=== PATIENT | female | born 1970 | race Caucasian/White ===

== ENCOUNTER 2022-11-03 17:28 | Emergency (ER) | payer OTHER ==
[~2022-11-03 17:28] MED LIST: Iopamidol-370 76% 500 ML MDV (1 ML CHARGE) ONE
[2022-11-03] MEDS ORDERED: Aspirin Chewable 81 MG TAB ONE (18:04)
[2022-11-03 18:15] LABS: #Basophils 0.1 thou/uL (0.0-0.2); #Eosinphils 0.3 thou/uL (0.0-0.7); #Monocytes 0.8 thou/uL (0.11-0.59); #Neutrophils 5.4 thou/uL (1.40-6.50); %Basophils 0.6 % (0.0-1.0); %Eosinophils 3.6 % (0.0-10.0); %Lymphocytes 26.2 % (21.0-51.0); %Monocytes 8.9 % (0.0-10.0); %Neutrophils 60.5 % (42.0-75.0); Hemoglobin 15.5 g/dL (12.0-16.0); Mean Corpuscular HGB CONC 34.3 g/dL (32.0-36.0); Mean Corpuscular Volume 87.6 fl (78.0-98.0); Platelet Count 281 10x3/uL (130-400); Red Blood Cell (RBC) Count 5.16 mill/uL (4.20-5.40); White Blood Cell (WBC) Count 8.9 10x3/uL (4.8-10.8)
[2022-11-03 18:40] LABS: ALT (SGPT) 20 U/L (8-55); AST (SGOT) 15 U/L (5-34); Albumin 4.1 g/dL (3.5-5.0); Alkaline Phosphatase 68 U/L (40-110); Anion Gap 15 mmol/L (10-20); BUN (Urea Nitrogen) 9 mg/dL (9.8-20.1); Bilirubin, Total 0.3 mg/dL (0.2-1.2); CK (CPK) 66 U/L (29-168); Calc. Creatinine Clearance 0 mL/min (70-130); Calcium 9.8 mg/dL (7.8-10.44); Carbon Dioxide 24 mmol/L (22-29); Chloride 103 mmol/L (98-107); Estimated GFR 84; Globulin 3.1 g/dL (2.4-3.5); Glucose 100 mg/dL (70-105); Lipase 26 U/L (8-78); Potassium 3.9 mmol/L (3.5-5.1); Protein, Total 7.2 g/dL (6.0-8.3); Sodium 138 mmol/L (136-145)
[2022-11-03 18:43] LABS: Bacteria/HPF None Seen HPF (None Seen); Bilirubin Negative (Negative); Blood, Urine Negative (Negative); CAUTI Indications for Culture Pelvic or flank pain; Clarity Clear (Clear); Glucose, Urine (Dipstick) Normal (Negative); Ketone, Urine Negative (Negative); Leukocyte 75 Leu/uL (Negative); Nitrite Negative (Negative); Protein, Urine (Dipstick) 30 mg/dL (Neg-Trace); RBC/HPF 0-3 HPF (0-3); Specific Gravity, Urine 1.024 (1.002-1.036); Squamous Epithelial 0-3 HPF (0-3); Urobilinogen Normal mg/dL (Less than 2); WBC/HPF 0-3 HPF (0-3)
[2022-11-03 18:45] LABS: Urine Culture Reflex No No
== END 2022-11-03 21:19 | disposition home or self-care (01) ==
LOC: ERS 17:28
DX: R11.2 Nausea with vomiting, unspecified (principal); K59.00 Constipation, unspecified; N39.0 Urinary tract infection, site not specified; L74.0 Miliaria rubra; F17.210 Nicotine dependence, cigarettes, uncomplicated
CPT/HCPCS: 36415; 71045; 74177; 80053; 81001; 82550; 83690; 83880; 84484; 85025; 93005; 96360; Q9967

== ENCOUNTER 2022-11-18 15:35 | Inpatient (IN) | payer OTHER ==
[2022-11-18 16:22] LABS: #Monocytes 1.7 thou/uL (0.11-0.59); #Neutrophils 13.5 thou/uL (1.40-6.50); %Basophils 0.2 % (0.0-1.0); %Eosinophils 0.1 % (0.0-10.0); %Lymphocytes 6.9 % (21.0-51.0); %Monocytes 10.2 % (0.0-10.0); %Neutrophils 81.8 % (42.0-75.0); Hemoglobin 12.5 g/dL (12.0-16.0); Mean Corpuscular HGB CONC 34.3 g/dL (32.0-36.0); Mean Corpuscular Hemoglobin 30.5 pg (27.0-31.0); Mean Corpuscular Volume 88.8 fl (78.0-98.0); Mean Platelet Volume 9.7 fL (7.4-10.4); Platelet Count 260 10x3/uL (130-400); White Blood Cell (WBC) Count 16.5 10x3/uL (4.8-10.8)
[2022-11-18] MEDS ORDERED: Ketorolac Tromethamine 30 MG/ML VIAL ONE (16:35)
[2022-11-18] MEDS ORDERED: Cefepime 2 GM VIAL ONE (16:46)
[2022-11-18 16:49] LABS: ALT (SGPT) 13 U/L (8-55); AST (SGOT) 14 U/L (5-34); Albumin 3.4 g/dL (3.5-5.0); Alkaline Phosphatase 74 U/L (40-110); Anion Gap 13 mmol/L (10-20); BUN (Urea Nitrogen) 5 mg/dL (9.8-20.1); Bilirubin, Total 0.5 mg/dL (0.2-1.2); Calc. Creatinine Clearance 0 mL/min (70-130); Calcium 8.3 mg/dL (7.8-10.44); Carbon Dioxide 23 mmol/L (22-29); Chloride 96 mmol/L (98-107); Estimated GFR 91; Globulin 2.9 g/dL (2.4-3.5); Glucose 106 mg/dL (70-105); Potassium 3.5 mmol/L (3.5-5.1); Protein, Total 6.3 g/dL (6.0-8.3); Sodium 128 mmol/L (136-145)
[2022-11-18 17:25] LABS: Bilirubin Negative (Negative); Blood, Urine Trace (Negative); CAUTI Indications for Culture Alt mental st,lethar; Clarity Clear (Clear); Glucose, Urine (Dipstick) Normal (Negative); Ketone, Urine Negative (Negative); Leukocyte 75 Leu/uL (Negative); Nitrite 1+ (Negative); Protein, Urine (Dipstick) Negative (Neg-Trace); Specific Gravity, Urine 1.003 (1.002-1.036); Urobilinogen Normal mg/dL (Less than 2); pH, Urine 6.5 (5.0-9.0)
[2022-11-18 17:26] LABS: RBC/HPF 0-3 HPF (0-3)
[2022-11-18 17:27] LABS: Bacteria/HPF Rare-Few HPF (None Seen); Squamous Epithelial 0-3 HPF (0-3); WBC/HPF 0-3 HPF (0-3)
[2022-11-18 17:28] LABS: Urine Culture Reflex No No
[2022-11-18] MEDS ORDERED: Vancomycin 1 GM/200 ML (FROZEN) BAG ONE (17:56)
[2022-11-18] MEDS ORDERED: Acetaminophen 500 MG TAB ONE (18:37)
[2022-11-18 18:53] LABS: Actual Bicarbonate (HCO3v) 22.4 mEq/L (22-28); Base Excess -1.5 mEq/L (-2.0 to +3.0); Calcium, Ionized (venous) 1.02 mmol/L (1.16-1.32); Chloride (VBG) 100 mmol/L (98-106); Hematocrit-VBG 37 % (36.0-47.0); Hemoglobin (Hb) 12.6 g/dL (11.7-16.0); Potassium (VBG) 3.25 mmol/L (3.70-5.30); Sodium 130.4 mmol/L (133-146); pH (venous) 7.423 (7.32-7.43)
[2022-11-18 19:49] LABS: Alcohol Less than 10.0 mg/dL (Less than 10)
[2022-11-18 19:51] LABS: Acetaminophen 19 mcg/mL (10.0-30.0); Salicylate Less than 8.0 mg/dL (15.0-30.0)
[2022-11-18 19:52] LABS: Lipase 23 U/L (8-78)
[2022-11-18 20:23] LABS: Amphetamine Not Detected (NotDetected); Barbiturates Screen Not Detected (NotDetected); Benzodiazepine Screen Not Detected (NotDetected); Cocaine Metabolite Screen Detected (NotDetected); Methadone Not Detected (NotDetected); Methamphetamine Not Detected (NotDetected); Opiate Screen Not Detected (NotDetected); Oxycodone Screen Not Detected (NotDetected); Phencyclidine (PCP) Not Detected (NotDetected); THC/Cannabinoid Screen Not Detected (NotDetected); Tricyclic Screen Not Detected (NotDetected)
[2022-11-18] MEDS ORDERED: Ondansetron ODT 4 MG TAB PO PRN (21:21)
[2022-11-18] MEDS ORDERED: Senokot S 8.6-50 MG TAB PO PRN (21:21)
[2022-11-18] MEDS ORDERED: Calcium Carbonate 500 MG ChewTAB PO PRN (21:21)
[2022-11-18] MEDS ORDERED: Lactated Ringer's 1,000 ML IV SCH (21:30)
[2022-11-18] MEDS: Nicotine 14 MG PATCH TD SCH (22:14)
[2022-11-18 22:21] VITALS: BMI 34.4
[2022-11-18] MEDS ORDERED: Vancomycin HCl 750 MG in Sodium Chloride 0.9% 250 ML 250 ML IVPB SCH (23:00)
[2022-11-19] MEDS: Acetaminophen 325 MG TAB PO PRN ×2 (04:33→18:03)
[2022-11-19] MEDS: Cefepime 1 GM in Sodium Chloride 0.9% 100 ML IVPB SCH ×2 (04:33→15:01)
[2022-11-19 06:09] LABS: #Basophils 0.1 thou/uL (0.0-0.2); #Monocytes 1.5 thou/uL (0.11-0.59); #Neutrophils 12.8 thou/uL (1.40-6.50); %Basophils 0.3 % (0.0-1.0); %Eosinophils 0.1 % (0.0-10.0); %Lymphocytes 8.3 % (21.0-51.0); %Monocytes 9.7 % (0.0-10.0); %Neutrophils 80.5 % (42.0-75.0); Hemoglobin 12.6 g/dL (12.0-16.0); Mean Corpuscular HGB CONC 33.8 g/dL (32.0-36.0); Mean Corpuscular Hemoglobin 30.1 pg (27.0-31.0); Mean Corpuscular Volume 89.2 fl (78.0-98.0); Mean Platelet Volume 9.7 fL (7.4-10.4); Platelet Count 257 10x3/uL (130-400); RBC Distribution Width 14.1 % (11.5-14.5); Red Blood Cell (RBC) Count 4.18 mill/uL (4.20-5.40); White Blood Cell (WBC) Count 15.9 10x3/uL (4.8-10.8)
[2022-11-19 06:48] LABS: Anion Gap 11 mmol/L (10-20); BUN (Urea Nitrogen) 5 mg/dL (9.8-20.1); Calc. Creatinine Clearance 129 mL/min (70-130); Calcium 8.5 mg/dL (7.8-10.44); Carbon Dioxide 23 mmol/L (22-29); Chloride 105 mmol/L (98-107); Estimated GFR 99; Glucose 98 mg/dL (70-105); Potassium 3.4 mmol/L (3.5-5.1); Sodium 136 mmol/L (136-145)
[2022-11-19] MEDS: Famotidine 20 MG TAB PO SCH ×2 (08:19→20:26)
[2022-11-19] MEDS: VANCOMYCIN 1.25 GM/250 ML BAG 1.25 GM in Premix Bag 1 BAG IVPB SCH ×2 (08:19→20:26)
[2022-11-19] MEDS ORDERED: Vancomycin 1.5 GRAM/300 ML BAG 1.5 GM in Premix Bag 1 BAG IVPB SCH (09:00)
[2022-11-19] MEDS ORDERED: Ipratropium/Albuterol 3 ML NEB NEB PRN (13:06)
[2022-11-19] MEDS: Nicotine 14 MG PATCH TD SCH ×2 (20:26→21:00)
[2022-11-20] MEDS: Cefepime 1 GM in Sodium Chloride 0.9% 100 ML IVPB SCH ×2 (04:57→16:20)
[2022-11-20 08:43] LABS: Vancomycin, Trough 3.3 ug/mL
[2022-11-20] MEDS: Famotidine 20 MG TAB PO SCH ×2 (09:23→21:43)
[2022-11-20] MEDS: VANCOMYCIN 1.25 GM/250 ML BAG 1.25 GM in Premix Bag 1 BAG IVPB SCH ×2 (09:50→21:57)
[2022-11-20] MEDS: Acetaminophen 325 MG TAB PO PRN (17:35)
[2022-11-20 20:48] LABS: Vancomycin, Trough 7.5 ug/mL
[2022-11-20] MEDS: Nicotine 14 MG PATCH TD SCH (21:57)
[2022-11-21] MEDS: Acetaminophen 325 MG TAB PO PRN ×3 (00:10→21:44)
[2022-11-21] MEDS: VANCOMYCIN 1.25 GM/250 ML BAG 1.25 GM in Premix Bag 1 BAG IVPB SCH ×2 (05:26→13:15)
[2022-11-21] MEDS: Cefepime 2 GM in Sodium Chloride 0.9% 100 ML IVPB SCH ×2 (05:26→16:37)
[2022-11-21] MEDS: Famotidine 20 MG TAB PO SCH ×2 (08:23→21:45)
[2022-11-21 09:33] LABS: #Eosinphils 0.6 thou/uL (0.0-0.7); #Monocytes 0.5 thou/uL (0.11-0.59); #Neutrophils 5.7 thou/uL (1.40-6.50); %Basophils 0.5 % (0.0-1.0); %Eosinophils 7.5 % (0.0-10.0); %Lymphocytes 17.2 % (21.0-51.0); %Monocytes 6.2 % (0.0-10.0); Hemoglobin 12.4 g/dL (12.0-16.0); Mean Corpuscular HGB CONC 32.8 g/dL (32.0-36.0); Mean Corpuscular Hemoglobin 30.1 pg (27.0-31.0); Mean Corpuscular Volume 91.7 fl (78.0-98.0); Mean Platelet Volume 9.7 fL (7.4-10.4); Platelet Count 302 10x3/uL (130-400); RBC Distribution Width 14.5 % (11.5-14.5); Red Blood Cell (RBC) Count 4.12 mill/uL (4.20-5.40); White Blood Cell (WBC) Count 8.4 10x3/uL (4.8-10.8)
[2022-11-21 09:56] LABS: Anion Gap 12 mmol/L (10-20); BUN (Urea Nitrogen) 5 mg/dL (9.8-20.1); Calc. Creatinine Clearance 135 mL/min (70-130); Calcium 8.8 mg/dL (7.8-10.44); Carbon Dioxide 21 mmol/L (22-29); Chloride 108 mmol/L (98-107); Estimated GFR 104; Glucose 130 mg/dL (70-105); Potassium 3.9 mmol/L (3.5-5.1); Sodium 137 mmol/L (136-145)
[2022-11-21 20:23] LABS: Vancomycin, Trough 20.6 ug/mL
[2022-11-21] MEDS: Vancomycin 1 GM in Premix Bag 1 BAG IVPB SCH (21:46)
[2022-11-21] MEDS: Nicotine 14 MG PATCH TD SCH (21:46)
[2022-11-22] MEDS: Cefepime 2 GM in Sodium Chloride 0.9% 100 ML IVPB SCH (04:44)
[2022-11-22] MEDS: Vancomycin 1 GM in Premix Bag 1 BAG IVPB SCH ×2 (04:47→17:09)
[2022-11-22] MEDS: Famotidine 20 MG TAB PO SCH ×2 (07:52→22:36)
[2022-11-22] MEDS ORDERED: Sodium Chloride 0.9% 1,000 ML IV SCH (08:00)
[2022-11-22] MEDS ORDERED: Fentanyl 250 MCG/5 ML VIAL ONE (13:50)
[2022-11-22] MEDS ORDERED: Bupivacaine HCl 0.5%/Epinephrine 1:200,000/PF 30 ml Vial ONE (13:53)
[2022-11-22] MEDS ORDERED: Lidocaine 2% PF 5 ML VIAL ONE (13:53)
[2022-11-22] MEDS ORDERED: Ondansetron PF 4 MG/2 ML Vial ONE (13:56)
[2022-11-22] MEDS ORDERED: PROPOFOL 200 MG/20 ML VIAL ONE (13:56)
[2022-11-22] MEDS ORDERED: Dexamethasone 20 MG/5 ML VIAL ONE (13:56)
[2022-11-22] MEDS ORDERED: Lidocaine 1% PF 5 ML VIAL ONE (13:56)
[2022-11-22] MEDS ORDERED: traMADol HCl 50 MG TAB PO PRN (14:52)
[2022-11-22] MEDS ORDERED: Ibuprofen 600 MG TAB PO PRN (14:52)
[2022-11-22] MEDS ORDERED: Acetaminophen 500 MG TAB PO SCH (15:00)
[2022-11-22] MEDS ORDERED: Promethazine HCl 25 MG/ML VIAL IM PRN (15:04)
[2022-11-22] MEDS ORDERED: Ondansetron HCl/PF 4 MG/2 ML Vial IVP PRN (15:04)
[2022-11-22] MEDS ORDERED: HYDROmorphone 2 MG/ML VIAL SLOW IVP PRN (15:04)
[2022-11-22] MEDS ORDERED: fentaNYL 50 mcg/mL 1 mL Vial ONE (15:06)
[2022-11-22] MEDS ORDERED: Acetaminophen 500 MG TAB ONE (15:16)
[2022-11-22] MEDS ORDERED: Gabapentin 300 MG CAP ONE (15:16)
[2022-11-22] MEDS: Gabapentin 300 MG CAP PO SCH ×2 (15:22→22:37)
[2022-11-22 22:11] LABS: Vancomycin, Trough 21.2 ug/mL
[2022-11-22] MEDS: Acetaminophen 500 MG TAB PO SCH (22:36)
[2022-11-22] MEDS: Nicotine 14 MG PATCH TD SCH (22:37)
[2022-11-23] MEDS: Vancomycin 1.5 GRAM/300 ML BAG 1.5 GM in Premix Bag 1 BAG IVPB SCH ×2 (05:35→17:23)
[2022-11-23] MEDS: Gabapentin 300 MG CAP PO SCH ×3 (07:57→20:20)
[2022-11-23] MEDS: Famotidine 20 MG TAB PO SCH ×2 (07:57→20:21)
[2022-11-23] MEDS: Acetaminophen 500 MG TAB PO SCH ×4 (07:58→20:20)
[2022-11-23] MEDS: Nicotine 14 MG PATCH TD SCH (20:22)
[2022-11-23] MEDS ORDERED: Lidocaine Viscous Sol 2% 15 ml UD Cup SSP PRN (20:55)
[2022-11-23] MEDS ORDERED: Acyclovir 400 mg Tablet PO SCH (21:30)
[2022-11-24] MEDS: Acyclovir 400 mg Tablet PO SCH ×6 (00:24→23:37)
[2022-11-24] MEDS: Vancomycin 1.5 GRAM/300 ML BAG 1.5 GM in Premix Bag 1 BAG IVPB SCH (04:25)
[2022-11-24] MEDS: Acetaminophen 500 MG TAB PO SCH ×4 (07:56→20:27)
[2022-11-24] MEDS: Famotidine 20 MG TAB PO SCH ×2 (07:56→20:28)
[2022-11-24] MEDS: Gabapentin 300 MG CAP PO SCH ×3 (07:56→20:29)
[2022-11-24] MEDS: Sulfameth/Trimethoprim DS 800-160mg TAB PO SCH ×2 (08:59→20:28)
[2022-11-24] MEDS ORDERED: Morphine 2 MG/ML VIAL SLOW IVP SCH (12:17)
[2022-11-24] MEDS: Nicotine 14 MG PATCH TD SCH (20:30)
[2022-11-24] MEDS: Ibuprofen 200 MG TAB PO PRN (23:38)
[2022-11-25] MEDS: Ibuprofen 200 MG TAB PO PRN (06:41)
[2022-11-25 08:28] VITALS: BP 150/74; TEMP 97.6
[2022-11-25] MEDS: Acyclovir 400 mg Tablet PO SCH ×2 (08:45→11:49)
[2022-11-25] MEDS: Famotidine 20 MG TAB PO SCH (08:46)
[2022-11-25] MEDS: Gabapentin 300 MG CAP PO SCH (08:46)
[2022-11-25] MEDS: Acetaminophen 500 MG TAB PO SCH (08:46)
[2022-11-25] MEDS: Sulfameth/Trimethoprim DS 800-160mg TAB PO SCH (08:46)
== END 2022-11-25 12:16 | disposition home or self-care (01) | DRG 853 ==
LOC: ERS 15:35 → T4-B 20:14 → OBSVTOIN 11-19 12:59
PROVIDERS: ADMIT Student in an Organized Health Care Education/Training Program; ATTEND Internal Medicine
PROC: 3E03329 Introduction of Other Anti-infective into Peripheral Vein, Percutaneous Approach (ICD-10-PCS; 2022-11-19)
PROC: 0JBF0ZZ Excision of Left Upper Arm Subcutaneous Tissue and Fascia, Open Approach (ICD-10-PCS; principal; 2022-11-22)
PROC: 0X950ZZ Drainage of Left Axilla, Open Approach (ICD-10-PCS; 2022-11-22)
DX: A41.02 Sepsis due to Methicillin resistant Staphylococcus aureus (principal); G92.9 Unspecified toxic encephalopathy; E87.1 Hypo-osmolality and hyponatremia; L03.112 Cellulitis of left axilla; L02.419 Cutaneous abscess of limb, unspecified; E87.6 Hypokalemia; F17.210 Nicotine dependence, cigarettes, uncomplicated; J44.9 Chronic obstructive pulmonary disease, unspecified; F14.10 Cocaine abuse, uncomplicated; F43.10 Post-traumatic stress disorder, unspecified; F41.1 Generalized anxiety disorder; Z90.49 Acquired absence of other specified parts of digestive tract; Z98.890 Other specified postprocedural states
CPT/HCPCS: 36415; 71260; 80048; 80053; 80202; 80306; 80307; 81001; 82565; 82805; 83605; 83690; 85025; 87040; 87070; 87077; 87086; 87186; 87205; 96361; 96365; 96366; 96375; 96376; 97139; C1713; G0378; J0692; J1100; J1650; J1885; J2001; J2272; J2405; J2704; J3010; J3370; J3370-JW; J3490; J7050; J7120; Q0162; Q9967